=== PATIENT | male | born 1975 | race Asian ===

== ENCOUNTER 2024-10-16 01:36 | Emergency (ER) | payer SELFPAY ==
[2024-10-16] MEDS ORDERED: diphenhydrAMINE 25 MG CAP ONE (02:27)
[2024-10-16] MEDS ORDERED: Lorazepam 1 MG TAB ONE (02:27)
== END 2024-10-16 02:32 | disposition home or self-care (01) ==
LOC: CSHERS 01:36
DX: R51.9 Headache, unspecified (principal); F17.210 Nicotine dependence, cigarettes, uncomplicated
CPT/HCPCS: 99283